=== PATIENT | male | born 1965 | race Caucasian/White ===

== ENCOUNTER 2024-11-15 00:05 | Emergency (ER) | payer OTHER, SELFPAY ==
[2024-11-15] MEDS ORDERED: Ketorolac Tromethamine 30 MG (1 mL) VIAL ONE (01:43)
== END 2024-11-15 02:12 | disposition home or self-care (01) ==
LOC: ERS 00:05
DX: M79.18 Myalgia, other site (principal); M25.512 Pain in left shoulder; B20 Human immunodeficiency virus [HIV] disease
CPT/HCPCS: 96372; 99283; J1885